=== PATIENT | female | born 1985 | race Caucasian/White ===

== ENCOUNTER 2017-03-27 23:31 | Emergency (ER) | payer MEDICARE ==
[~2017-03-27] VITALS: Ht 160 cm; Wt 86.0 kg
[2017-03-28] MEDS ORDERED: ACETAMINOPHEN WITH CODEINE 300/30MG TABLET PO ONE (03:00)
[2017-03-28] MEDS ORDERED: KETOROLAC 60MG/2ML VIAL IM ONE (03:00)
[2017-03-28] MEDS ORDERED: ONDANSETRON 4MG ODT PO ONE (03:00)
[2017-03-28] MEDS ORDERED: METOCLOPRAMIDE HCL 10MG/2ML VIAL IV ONE (05:30)
[2017-03-28 06:00] VITALS: BP 104/72
[2017-03-28] MEDS ORDERED: SODIUM CHLORIDE 0.9% 1,000 ML IV ONE (06:00)
[2017-03-28] MEDS ORDERED: HYDROCODONE/ACETAMINOPHEN 5/325MG TABLET PO ONE (06:00)
== END 2017-03-28 06:05 | disposition home or self-care (01) ==
LOC: ER 23:31
DX: R51 Headache (principal)
CPT/HCPCS: 70450; 81025; 96372; 99284; J1885; Q0162; Z7610; J7030